=== PATIENT | male | born 1990 | race Caucasian/White ===

== ENCOUNTER 2020-10-09 19:17 | Emergency (ER) | payer BC, SELFPAY ==
[2020-10-09] VITALS (8 sets, daily range): BP systolic 148–168; BP diastolic 83–96; PULSE 75–104; RESP 13–19; TEMP 37; O2SAT 98–100
--- NOTE | ~2020-10-09 | CT_ITS ---
EXAMINATION: CT brain wo con INDICATION: Headache with vision changes COMPARISON: None TECHNIQUE: Standard unenhanced head CT. The dose-length product (DLP) was 605.33 mGy-cm. The mA was a djusted according to patient size. Iterative reconstruction technique was employed. FINDINGS: There is no intracranial hemorrhage, acute infarction, or abnormal mass lesion. The ventric les are normal. There is no abnormal mass effect or midline shift. The lópez-white matter differentiat ion is normal. The basal cisterns are patent. The orbits are normal. There is mild mucosal thickening of the paranasal sinuses. IMPRESSION: 1. No acute intracranial abnormality. Reviewed, dictated and finalized at location A. [employer]
[2020-10-09] MEDS: KETOROLAC 30 MG/ML VIAL (*BKC) IV PUSH (19:59)
[2020-10-09] MEDS: SODIUM CHLORIDE 0.9% IV 1,000 ML 999 ML IV CONT (19:59)
[2020-10-09 20:03] LABS: Basophils Absolute Auto 0.2 K/mm3 (0.0-0.1); Basophils Percent Auto 1.1 % (0.2-1.2); Eosinophils Absolute Auto 0.7 K/mm3 (0-0.3); Eosinophils Percent Auto 4.6 % (0-4.4); Hematocrit 42.3 % (42.0-52.0); Hemoglobin 15.5 g/dL (14.0-18.0); Immature Granulocyte Absolute 0.06 K/mm3 (0.00-0.031); Immature Granulocyte Percent A 0.4 % (0-0.5); Lymphocytes Absolute Auto 3.24 K/mm3 (0.9-3.2); Lymphocytes Percent Auto 22.5 % (18.3-44.2); Mean Corpuscular HGB Conc 36.6 g/dl (32-36); Mean Corpuscular Hemoglobin 32.1 pg (26-34); Mean Corpuscular Volume 87.6 fl (80-100); Mean Platelet Volume 10.5 fl (7.4-10.4); Monocytes Absolute Auto 1.5 K/mm3 (0.1-0.6); Monocytes Percent Auto 10.3 % (2.6-8.5); Neutrophils Absolute Auto 8.8 K/mm3 (1.3-6.7); Neutrophils Percent Auto 61.1 % (45.5-73.1); Platelet Count Result 295 k/mm3 (150-375); Red Blood Count 4.83 M/mm3 (4.6-6.20); Red Cell Distribution Width 12.2 % (11.5-14.5); White Blood Count 14.4 K/mm3 (4.5-10.0)
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
[2020-10-09 20:14] LABS: Anion Gap 10 mmol/L (8-16); Blood Urea Nitrogen 17 mg/dL (9-20); Calcium 10.1 mg/dL (8.4-10.2); Carbon Dioxide 26 mmol/L (22-30); Chloride 105 mmol/L (98-107); Estimated CRCL calculation 70 ml/min; Estimated Glomerular Filt Rate > 60; Glucose 104 mg/dL (75-110); Sodium 141 mmol/L (137-145)
== END 2020-10-09 22:52 | disposition home or self-care (01) ==
PROVIDERS: Emergency Provider Emergency Medicine; PCP Nurse Practitioner
DX: G43.909 Migraine, unspecified, not intractable, without status migrainosus (principal)
CPT/HCPCS: 36415; 70450; 80048; 85025; 96361; 96374; 99284; J1885; J7030

== ENCOUNTER → 2022-04-17 15:23 | Outpatient (CLI) | payer BC, SELFPAY ==
--- NOTE | ~2022-04-17 | US_ITS ---
EXAMINATION: US scrotum doppler DATE: 04/17/2022 15:49 INDICATION: History of left testicular torsion TECHNIQUE: Testicular sonogram utilizing grayscale and Doppler COMPARISON: None. FINDINGS: The right testis measures 4.3 x 1.8 x 3.1 cm. The left testis measures 4.5 x 2.0 x 3.3 cm. There is normal vascular flow to both testes. The right epididymis contains an 8 mm cyst or spermatoc ines. The left epididymis contains a 6 mm cyst or spermatocele. There is no varicocele or hydrocele. IMPRESSION: 1. Unremarkable scrotal ultrasound. Reviewed, dictated and finalized at location D.
== END ==
PROVIDERS: PCP Nurse Practitioner; Visit Provider Nurse Practitioner
DX: N44.00 Torsion of testis, unspecified (principal); N50.89 Other specified disorders of the male genital organs
CPT/HCPCS: 76870; 93976

== ENCOUNTER 2023-03-07 02:01 | Day surgery (SDC) | payer BC, SELFPAY ==
[2023-02-28 15:44] VITALS: BMI 29.0
--- NOTE | 2023-03-06 17:08 | PM.HPGS ---
History of Present Illness History of Present Illness Consent: Risks, benefits, and alternatives have been discussed and questions answered. Patient agrees to proceed with procedure. Chief complaint: dysphagia Narrative: Margarita Landaverde is a 32 year old male who has been having dysphagia for about 18 months. He also has odynophagia and has acid reflux symptoms. Review of Systems Review of Systems: All systems reviewed & are unremarkable except as noted in HPI and below PMFSH Past Medical History Medical History Allergic rhinitis, unspecified Migraine headache Unspecified asthma, uncomplicated Surgical History Surgical History H/O vasectomy History of appendectomy (~1999) Family History Family History Sibling Family history of mental disorder Family history of schizophrenia Father Patient's father is in good health Acute myocardial infarction Mother Family history of cardiovascular disease Other Cerebrovascular accident Social History Social History Smoking status: Current some day smoker Tobacco type: cigars Alcohol intake: current Drinks per week: 3 Substance use: never Substance use type: does not use Lack of Transportation: No Lack of Food: Never True Current Housing: I Have Housing Concerned About Future Housing: No Difficulty Paying Gas/Electric Bills: No Difficulty Paying for Meds: No Currently Unemployed: No Education: Master's Degree or Higher Difficulty w/ Childcare or Family Care: No Living arrangements: with family Occupation/Education: occupation Gender identity (if verbalized by the patient): Male Spiritual care concerns: No Agree to blood products: Yes Meds Home Medications and Allergies Home Medications Medication Instructions Recorded Confirmed Type albuterol sulfate 90 mcg/actuation 2 puff inhalation Q4H PRN wheezing 11/06/22 02/28/23 Rx aerosol inhaler (ProAir HFA) #8.5 grams montelukast 10 mg tablet 10 mg PO DAILY #90 tabs 01/18/23 02/28/23 Rx cetirizine 10 mg tablet (Zyrtec) 10 mg PO DAILY PRN Allergy Symptoms 01/23/23 02/28/23 History triamcinolone acetonide 0.1 % 1 applic topical BID PRN Rash 02/28/23 02/28/23 History topical ointment pantoprazole 40 mg tablet,delayed 40 mg PO QAM #30 tabs 03/07/23 Rx release Allergies Allergy/AdvReac Type Severity Reaction Status Date / Time No Known Allergies Allergy Verified 03/07/23 11:58 Exam Const: General: alert Orientation/consciousness: patient oriented x3 Resp: Auscultation: clear to auscultation bilaterally Cardio: Rhythm: regular rhythm GI: GI Palp: Yes Soft to palpation and No Tenderness to palpation present (GI) Neuro: General: patient oriented x3 Assessment and Plan Assessment and plan (1) Dysphagia: Code(s): R13.10 - Dysphagia, unspecified Status: Acute Assessment and Plan: EGD with possible biopsy or dilatation or cautery.
[2023-03-07 12:00] VITALS: BP 132/88; PULSE 86; RESP 19; TEMP 36.2; O2SAT 99
[2023-03-07] MEDS: LACTATED RINGERS 1,000 ML 150 ML IV CONT (12:13)
--- NOTE | 2023-03-07 12:50 | WPDANESEPPF ---
Anes - Initial Pre Proc Eval Procedure: Operation Date: 03/07/23 13:15 Proposed Procedures p Esophagogastroduodenoscopy - Hima Pathak MD Date/Time: 03/07/23 12:50 Surgeon: Hima Pathak MD Pre Op Diagnosis: dysphagia Patient Data Age: 32 Gender: M Height: 1.7 m Weight: 84.3 kg Last Vital Signs Temp 97.2 F L 03/07/23 12:00 Pulse 86 03/07/23 12:00 Resp 19 03/07/23 12:00 BP 132/88 03/07/23 12:00 Pulse Ox 99 03/07/23 12:00 O2 Del Method Room Air 03/07/23 12:00 Allergies Allergy/AdvReac Type Severity Reaction Status Date / Time No Known Allergies Allergy Verified 03/07/23 11:58 Home Medications Medication Instructions Recorded Confirmed Type albuterol sulfate 90 mcg/actuation 2 puff inhalation Q4H PRN wheezing 11/06/22 02/28/23 Rx aerosol inhaler (ProAir HFA) #8.5 grams montelukast 10 mg tablet 10 mg PO DAILY #90 tabs 01/18/23 02/28/23 Rx cetirizine 10 mg tablet (Zyrtec) 10 mg PO DAILY PRN Allergy Symptoms 01/23/23 02/28/23 History triamcinolone acetonide 0.1 % 1 applic topical BID PRN Rash 02/28/23 02/28/23 History topical ointment Patient hx anesthesia problems: none Family hx anesthesia problems: none Results Review: All pre-operative results and documents have been reviewed as part of the pre-operative evaluation. [facility] Past Medical History Medical History Allergic rhinitis, unspecified Migraine headache Unspecified asthma, uncomplicated Surgical History Surgical History H/O vasectomy History of appendectomy (~1999) Family History Family History Sibling Family history of mental disorder Family history of schizophrenia Father Patient's father is in good health Acute myocardial infarction Mother Family history of cardiovascular disease Other Cerebrovascular accident Social History Social History Smoking status: Current some day smoker Tobacco type: cigars Alcohol intake: current Drinks per week: 3 Substance use: never Substance use type: does not use Lack of Transportation: No Lack of Food: Never True Current Housing: I Have Housing Concerned About Future Housing: No Difficulty Paying Gas/Electric Bills: No Difficulty Paying for Meds: No Currently Unemployed: No Education: Master's Degree or Higher Difficulty w/ Childcare or Family Care: No Living arrangements: with family Occupation/Education: occupation Gender identity (if verbalized by the patient): Male Spiritual care concerns: No Agree to blood products: Yes Anes - Eval Final PreProcedure Day of Procedure 03/07/23 12:50 Patient weight: normal Heart: regular rate and rhythm Lungs: clear to auscultation Airway: Mallampati scale class II Neurological: alert and oriented Last oral intake: >/= 8 hours ASA classification: II Emergent: no Anesthetic plan: proceed Anesthesia type and monitoring: general GIVS and standard monitoring Results Review: All pre-operative results and documents have been reviewed as part of the pre-operative evaluation. Informed Consent: The patient's anesthetic plan and its attendant risks and benefits were discussed with the patient/family/POA. Questions were solicited and answers provided to the satisfaction of the patient/family/POA.
[2023-03-07 13:53] VITALS: BP 125/63; PULSE 84; RESP 27; O2SAT 98
[2023-03-07 14:03] VITALS: BP 116/76; PULSE 77; RESP 23; O2SAT 100
[2023-03-07 14:13] VITALS: BP 110/71; PULSE 76; RESP 17; O2SAT 99
== END 2023-03-07 14:23 | disposition home or self-care (01) ==
PROVIDERS: PCP Family Medicine; Visit Provider Internal Medicine Gastroenterology
PROC: 0DJ08ZZ Inspection of Upper Intestinal Tract, Via Natural or Artificial Opening Endoscopic (ICD-10-PCS; CPT 43235; principal; 2023-03-07 13:15)
DX: K25.9 Gastric ulcer, unspecified as acute or chronic, without hemorrhage or perforation (principal); K21.00 Gastro-esophageal reflux disease with esophagitis, without bleeding; J45.909 Unspecified asthma, uncomplicated; Z79.51 Long term (current) use of inhaled steroids; F17.290 Nicotine dependence, other tobacco product, uncomplicated
CPT/HCPCS: 43239; 87081; 88305; J2704; J7120

== ENCOUNTER → 2023-03-27 09:07 | Outpatient (CLI) | payer BC, SELFPAY ==
--- NOTE | ~2023-03-27 | XR_ITS ---
EXAMINATION: [id number] INDICATION: Left chest pain after fall TECHNIQUE: A frontal view of the chest and 3 views of the left ribs were obtained. COMPARISON: None. FINDINGS: The lungs are free of acute opacities. No pleural effusion or pneumothorax. The cardiomedia stinal silhouette is normal. There is elevation of the right hemidiaphragm. There is a questionable n ondisplaced anterolateral fracture of the left seventh rib. IMPRESSION: 1. Possible nondisplaced anterolateral fracture of the left seventh rib. 2. No acute cardiopulmonary abnormality. 3. Right hemidiaphragm elevation of unclear etiology. Reviewed, dictated and finalized at location A.
== END ==
PROVIDERS: PCP Nurse Practitioner Family; Visit Provider Nurse Practitioner Family
DX: R07.81 Pleurodynia (principal)
CPT/HCPCS: 71101

== ENCOUNTER 2023-06-08 13:44 | Outpatient (CLI) | payer BC, SELFPAY ==
--- NOTE | ~2023-06-08 | XR_ITS ---
EXAMINATION: XR chest 2V 06/08/2023 14:06 INDICATION: Disorders of the diaphragm PROCEDURE: 2 view chest COMPARISON: No prior studies for comparison. FINDINGS: The lungs are clear. The cardiomediastinal silhouette is within normal limits. There are no pleural effusions. There is no pneumothorax suspected. IMPRESSION: 1: NO ACUTE CARDIOPULMONARY DISEASE. Reviewed, dictated and finalized at location A.
== END 2023-06-08 13:45 | disposition home or self-care (01) ==
PROVIDERS: PCP Nurse Practitioner Family; Visit Provider Internal Medicine Pulmonary Disease
DX: J98.6 Disorders of diaphragm (principal)
CPT/HCPCS: 71046

== ENCOUNTER 2023-06-19 17:32 | Emergency (ER) | payer BC, SELFPAY ==
[2023-06-19 17:42] VITALS: BP 123/92; PULSE 78; RESP 16; TEMP 36.6; O2SAT 99
--- NOTE | 2023-06-19 17:45 | ED.EAR ---
HPI - Ear Problem General Chief complaint: Ear Stated complaint: EARACHE Time Seen by Provider: 06/19/23 17:53 Source: patient and RN notes reviewed Mode of arrival: ambulatory Limitations: no limitations History of Present Illness HPI Narrative: 33-year-old male presents concern for right ear pain since yesterday. Reports he has had neck some nasal congestion and rhinorrhea for several days prior to that. Reports he tried Tylenol with relief of pain. He denies drainage from the ear MD Complaint: ear pain Related Data Home Medications Medication Instructions Recorded Confirmed cetirizine 10 mg tablet (Zyrtec) 10 mg PO DAILY PRN Allergy Symptoms 01/23/23 06/19/23 Allergies Allergy/AdvReac Type Severity Reaction Status Date / Time No Known Allergies Allergy Verified 06/08/23 12:48 Review of Systems Review of Systems: CONSTITUTIONAL: Denies malaise, chills, sweats, or fever. EYES: Denies visual changes, redness, or discharge. ENT: Reports rhinorrhea, congestion. Denies sinus pain, and sore throat. Reports right ear pain CARDIOVASCULAR: Denies chest pain, palpitations, or edema. RESPIRATORY: Denies cough. Denies dyspnea. GASTROINTESTINAL: Denies abdominal pain, nausea, vomiting, diarrhea SKIN: Denies rash or itching. MUSCULOSKELETAL: Denies myalgia. NEUROLOGIC: Denies headache. All systems reviewed & are unremarkable except as noted in HPI and below PMFSH Past Medical History Medical History Allergic rhinitis, unspecified Migraine headache Unspecified asthma, uncomplicated Surgical History Surgical History H/O vasectomy History of appendectomy (~1999) Family History Family History Sibling Family history of mental disorder Family history of schizophrenia Father Patient's father is in good health Acute myocardial infarction Mother Family history of cardiovascular disease Other Cerebrovascular accident Social History Social History Smoking status: Never smoker Tobacco type: cigars Alcohol intake: current Drinks per week: 3 Substance use: never Substance use type: does not use Lack of Transportation: No Lack of Food: Never True Current Housing: I Have Housing Concerned About Future Housing: No Difficulty Paying Gas/Electric Bills: No Difficulty Paying for Meds: No Currently Unemployed: No Education: Master's Degree or Higher Difficulty w/ Childcare or Family Care: No Living arrangements: with family Occupation/Education: occupation Gender identity (if verbalized by the patient): Male Spiritual care concerns: No Agree to blood products: Yes Comments At time of signature, agree with nursing past medical, surgical, social and family history. There is no relevant family history pertinent to the presenting complaint Exam Narrative: GENERAL: Well-appearing, well-nourished, and in no acute distress. HEAD: Normocephalic EYES: PERRLA, conjunctivae clear ENT: Nares clear, turbinates edematous, clear discharge. Mucous membranes moist. Left TM pearly lópez with dull light reflex Right TM erythematous and bulging; no tragal tenderness. Oropharynx not erythematous without lesions. Tonsils not enlarged and without exudate, no drooling, no hoarseness, no trismus, uvula midline. NECK: Supple. No lymphadenopathy CHEST: Clear to auscultation, breath sounds equal. No wheezing, rhonchi, rales, or stridor. No respiratory distress, speaks in full sentences. HEART: Regular rate and rhythm. No murmur heard. SKIN: Warm, dry, no rash. NEURO: Alert and oriented x3. PSYCH: Normal mood and affect Course Course Emergency Course: Patient is aware of diagnosis, understands and agrees to treatment plan. Anticipatory guidance given. Marnie
== END 2023-06-19 18:05 | disposition home or self-care (01) ==
PROVIDERS: Emergency Provider Nurse Practitioner
DX: H66.91 Otitis media, unspecified, right ear (principal); J45.909 Unspecified asthma, uncomplicated; Z98.52 Vasectomy status
CPT/HCPCS: 99213; G0463

== ENCOUNTER 2023-07-02 08:03 | Outpatient (CLI) | payer BC, SELFPAY ==
--- NOTE | 2023-07-25 08:36 | WPDSLEEPSTUD ---
Sleep Study Date of Study: 07/02/23 Ordering Provider: Konstantin Echeverria MD Interpreting Physician: Ирина Christiansen DO Sleep Study Type: Polysomnogram Height: 1.7 m Weight: 78.471 kg Body Mass Index: 27.1 Neck Circumference (inches): 17 [place]: 6 Reason for Sleep Study Daytime hypersomnia. Previously diagnosed with mild JANA in 2020. Unable to tolerate PAP or mandibular advancement device. Sleep History The patient is a 33-year-old male with asthma and previously diagnosed sleep apnea that had a sleep study ordered by his chute operator to requalify for PAP therapy. The patient denies awakening from sleep short of breath. He rarely awakens at night with heartburn, belching or cough. He occasionally snores and is constantly loud enough that others complain. He frequently has trouble sleeping when he has a cold. He denies waking up gasping for air throughout the night. He occasionally has breathing problems at night observed by himself or others. He rarely sweats excessively at night. He occasionally has heart palpitations or irregular heartbeats during the night. He denies falling asleep during the day and while driving. He denies sleep paralysis and cataplexy. He occasionally has trouble at school or work due to sleepiness. He occasionally experiences vivid dreamlike scenes upon awakening or falling asleep. He denies feeling afraid of going to sleep. He denies having nightmares. He denies remembering his dreams. He constantly has thoughts racing through his mind. He rarely feels sad, depressed or anxious. He rarely has muscular tension. He occasionally notices parts of his body jerk. He rarely kicks during the night. He rarely has crawling and aching feelings in his legs but occasionally has leg pain during the night. He occasionally grinds his teeth during sleep but rarely awakens with morning jaw pain. He is occasionally bothered by pain during the day but never awakened by pain during the night. He occasionally wakes up feeling stiff in the morning. He rarely wakes up with sore or achy muscles. He rarely wakes up with pain in the neck, spine or other joints. He goes to bed between 10:00 p.m. to midnight on both weekdays and weekends. He can take him 30-60 minutes to asleep. He wakes up 3-4 times throughout the night to urinate and is able to fall back asleep within a few minutes. He wakes up between 6-7 a.m. on both weekdays and weekends. He typically gets 6-8 hours of sleep per night. He will stay in bed for less than 30 minutes after waking up in the morning. He currently lives with his and 3 children. He denies consuming any caffeinated beverages within 2 hours of bedtime. He denies engaging in physical exercise before bedtime. He will watch television before falling asleep. He denies taking naps in afternoon or the evening. He consumes 2 caffeinated beverages per day. He consumes 1-2 alcoholic beverages per day. He denies tobacco and recreational drug use. [facility] Past Medical History Medical History Allergic rhinitis, unspecified Migraine headache Unspecified asthma, uncomplicated Surgical History Surgical History H/O vasectomy History of appendectomy (~1999) Family History Family History Sibling Family history of mental disorder Family history of schizophrenia Father Patient's father is in good health Acute myocardial infarction Mother Family history of cardiovascular disease Other Cerebrovascular accident Social History Social History Smoking status: Never smoker Tobacco type: cigars Alcohol intake: current Drinks per week: 3 Substance use: never Substance use type: does not use Lack of Transportation: No Lack of Food: Never True Cur
[2023-07-25 08:47] VITALS: BMI 27.1
== END 2023-07-03 07:17 | disposition home or self-care (01) ==
LOC: ANHCSM 08:04
PROVIDERS: Visit Provider Internal Medicine Pulmonary Disease
DX: G47.33 Obstructive sleep apnea (adult) (pediatric) (principal)
CPT/HCPCS: 95810

== ENCOUNTER 2023-07-09 14:24 | Outpatient (CLI) | payer BC, SELFPAY ==
--- NOTE | 2023-07-13 17:15 | WPDPFTINT ---
PFT Procedure Performed PFT Procedure Performed Spirometry with Pre/Post Bronchodilator Plethysmography (Lung Vol) Diffusing Cap (DLCO) Flow Vol Loop PFT Interpretation DOS: 07/09/2023 REQUESTING: Dr Konstantin Echeverria REASON FOR TESTING: Asthma PULMONARY FUNCTION TESTS Spirometry: FEV1 is 4.67 L, 116% predicted, normal. FVC is 5.50 L, 113%, normal. FEV1/FVC is 85%, normal. There is a 1% increased in FEV1 and FVC after bronchodilator, not significant. Lung volumes: Total lung capacity is 8.30 L, 132% predicted, mild hyperinflation. Residual volume is 2.74 L, 183%, consistent with air trapping. Increased RV/TLC, 33%. Airway resistance is 0.96, 69%, not elevated. Diffusion: DLCO is 27.2, 81%, normal. DLCO/VA is 3.83, 72%, below normal. Flow volume loop: Unremarkable. IMPRESSION: Normal spirometry without response to bronchodilator, mild hyperinflation, air trapping and normal diffusion. Lack of response to bronchodilator should not preclude use if clinically indicated. No prior study for comparison. Jacquelyn Calvo MD
== END 2023-07-09 14:25 | disposition home or self-care (01) ==
PROVIDERS: Visit Provider Internal Medicine Pulmonary Disease
DX: J45.909 Unspecified asthma, uncomplicated (principal)
CPT/HCPCS: 94060; 94726; 94729